=== PATIENT | female | born 1990 | race Asian ===

== ENCOUNTER 2019-02-03 09:35 | Observation (INO) | payer MEDICAID ==
[~2019-02-03] VITALS: Ht 175.3 cm; Wt 68.0 kg
== END 2019-02-03 11:40 | disposition home or self-care (01) ==
LOC: SPU 09:35
PROVIDERS: ADMIT Obstetrics & Gynecology; ATTEND Obstetrics & Gynecology
DX: O62.9 Abnormality of forces of labor, unspecified (principal); Z3A.36 36 weeks gestation of pregnancy
CPT/HCPCS: 76815; G0378; 81002-TC

== ENCOUNTER 2019-02-04 00:16 | Inpatient (IN) | payer MEDICAID ==
[~2019-02-04] VITALS: Ht 175.3 cm; Wt 68.0 kg
[2019-02-04] MEDS ORDERED: OXYTOCIN/0.9 % SODIUM CHLORIDE 1,000 ML IV SCH ×2 (00:46→08:03)
[2019-02-04] MEDS ORDERED: LR 1,000 ML IV ONE (00:46)
[2019-02-04] MEDS ORDERED: LR 500 ML IV ONE ×2 (00:46→02:18)
[2019-02-04] MEDS ORDERED: LR 1,000 ML IV SCH (00:46)
[2019-02-04] MEDS ORDERED: NALBUPHINE HCL 10 MG/ML AMP IM PRN (01:00)
[2019-02-04] MEDS ORDERED: NALBUPHINE HCL 10 MG/ML AMP IVP PRN (01:00)
[2019-02-04] MEDS ORDERED: AMPICILLIN SODIUM 1 GM in NS 50 ML IV SCH (01:00)
[2019-02-04] MEDS ORDERED: AMPICILLIN SODIUM 2 GM in NS 100 ML IV ONE (01:00)
[2019-02-04] MEDS ORDERED: TERBUTALINE SULFATE 1 MG/ML VIAL SUBCUT ONE (01:00)
[2019-02-04 01:27] LABS: BASOPHILS % (AUTO) 0.3 % (0.0-2.0); EOSINOPHILS % (AUTO) 0.5 % (0.0-4.0); HEMATOCRIT 36.8 % (36-48); HEMOGLOBIN 12.9 g/dL (12.0-16.0); LYMPHOCYTES # (AUTO) 2.3 K/uL (1.0-5.5); LYMPHOCYTES % (AUTO) 24.8 % (20.5-51.5); MEAN CORPUSCULAR HEMOGLOBIN 34 pg (27-31); MEAN CORPUSCULAR HGB CONC 35 % (32-36); MEAN CORPUSCULAR VOLUME 96 fL (79.0-98.0); MONOCYTES # (AUTO) 0.7 K/uL (0.0-1.0); MONOCYTES % (AUTO) 7.7 % (1.7-9.3); NEUTROPHILS # (AUTO) 6.2 K/uL (1.8-7.7); NEUTROPHILS % (AUTO) 66.7 % (40.0-70.0); PLATELET COUNT (AUTO) 143 K/uL (130-430); RED BLOOD CELL COUNT(AUTO) 3.85 MIL/uL (4.2-6.2); RED CELL DISTRIBUTION WIDTH 12.8 % (9.0-15.0); WHITE BLOOD COUNT (AUTO) 9.3 K/uL (4.8-10.8)
[2019-02-04] MEDS ORDERED: fentaNYL CITRATE/PF 100 MCG/2 ML AMP ONE ×2 (01:53→02:58)
[2019-02-04] MEDS ORDERED: ROPIVACAINE HCL/PF 0.2% 200 ML ONE (01:53)
[2019-02-04] MEDS ORDERED: AMPICILLIN SODIUM 2 GM VIAL ONE (02:05)
[2019-02-04] MEDS ORDERED: FENT2mCg/mL-ROPIVA0.2%/NS EPID 200 ML EP SCH (02:30)
[2019-02-04 03:41] VITALS: BP_SYST 128
[2019-02-04] MEDS ORDERED: AMPICILLIN SODIUM 1 GM VIAL ONE (05:27)
[2019-02-04] MEDS ORDERED: OXYTOCIN/0.9 % SODIUM CHLORIDE 1,000 ML IV ONE (08:03)
[2019-02-04] MEDS ORDERED: WITCH HAZEL LEAF 1 MED.PAD MED.PAD TP PRN (08:15)
[2019-02-04] MEDS ORDERED: ANUSOL 1 EA SUPP.RECT (PREPARATION H) RC PRN (08:15)
[2019-02-04] MEDS ORDERED: DIPH-TET-PERTUS Vaccine 0.5 ML VIAL (ADACEL) I.M. PRN (08:15)
[2019-02-04] MEDS ORDERED: SENNOSIDES/DOCUSATE SODIUM 1 TAB TABLET(SENOKOT-S) PO PRN (08:15)
[2019-02-04] MEDS ORDERED: OXYCODONE/ACETAMINOPHEN 5-325 TABLET PO PRN ×2 (08:15)
[2019-02-04] MEDS ORDERED: METHYLERGONOVINE MALEATE 0.2 MG TABLET PO PRN (08:15)
[2019-02-04] MEDS ORDERED: RHO(D) IMMUNE GLOBULIN/MALTOSE 1500 UNITS/1.3 ML (WINHRO) IM PRN (08:15)
[2019-02-04] MEDS ORDERED: LANOLIN 7 GM OINT. TP PRN (08:15)
[2019-02-04] MEDS ORDERED: MEASLES,MUMPS&RUBELLA VACC/PF 12500 UNIT/0.5 ML VIAL SUBQ PRN (08:15)
[2019-02-04] MEDS ORDERED: DERMOPLAST SPRAY TP PRN (08:15)
[2019-02-04] MEDS ORDERED: HYDROCORTISONE 0.5%, 28.35 GM TOPICAL CREAM TP PRN (08:15)
[2019-02-04] MEDS: IBUPROFEN 600 MG TABLET PO SCH ×2 (12:32→17:49)
[2019-02-04] MEDS ORDERED: TEMAZEPAM 15 MG CAPSULE PO PRN (21:00)
[2019-02-05] MEDS: IBUPROFEN 600 MG TABLET PO SCH ×4 (00:29→18:00)
[2019-02-05] MEDS: DOCUSATE SODIUM 100 MG CAPSULE PO PRN ×2 (00:29→12:22)
[2019-02-05 06:33] LABS: HEMATOCRIT 29.8 % (36-48); HEMOGLOBIN 10.3 g/dL (12.0-16.0)
== END 2019-02-05 18:30 | disposition home or self-care (01) | DRG 560 ==
LOC: SPU 00:16
PROVIDERS: ADMIT Obstetrics & Gynecology; ATTEND Obstetrics & Gynecology
PROC: 10E0XZZ Delivery of Products of Conception, External Approach (ICD-10-PCS; principal; 2019-02-04)
PROC: 0W8NXZZ Division of Female Perineum, External Approach (ICD-10-PCS; 2019-02-04)
PROC: 3E0R3BZ Introduction of Anesthetic Agent into Spinal Canal, Percutaneous Approach (ICD-10-PCS; 2019-02-04)
PROC: 00HU33Z Insertion of Infusion Device into Spinal Canal, Percutaneous Approach (ICD-10-PCS; 2019-02-04)
DX: O69.81X0 Labor and delivery complicated by cord around neck, without compression, not applicable or unspecified (principal); O77.0 Labor and delivery complicated by meconium in amniotic fluid; Z3A.38 38 weeks gestation of pregnancy; Z37.0 Single live birth
CPT/HCPCS: 36415; 81002-TC; 85018-TC; 85025; 86592; 86886; 86900; 86901; 94760; J0290; J2590; J3010; J7120

== ENCOUNTER 2020-10-03 22:58 | Inpatient (IN) | payer OTHER, SELFPAY ==
[~2020-10-03] VITALS: Ht 175.3 cm; Wt 72.6 kg
[2020-10-04] MEDS ORDERED: NALBUPHINE HCL 10 MG/ML AMP IVP PRN (02:00)
[2020-10-04] MEDS ORDERED: TERBUTALINE SULFATE 1 MG/ML VIAL SUBCUT ONE (02:00)
[2020-10-04] MEDS ORDERED: LR 1,000 ML IV SCH (02:00)
[2020-10-04] MEDS ORDERED: OXYTOCIN/0.9 % SODIUM CHLORIDE 1,000 ML IV SCH (02:00)
[2020-10-04 02:02] VITALS: BP_SYST 127
[2020-10-04 02:33] LABS: BASOPHILS % (AUTO) 0.3 % (0.0-2.0); EOSINOPHILS # (AUTO) 0.1 K/uL (0.0-0.4); EOSINOPHILS % (AUTO) 0.9 % (0.0-4.0); HEMOGLOBIN 12.3 g/dL (12.0-16.0); LYMPHOCYTES # (AUTO) 2.1 K/uL (1.0-5.5); MEAN CORPUSCULAR HEMOGLOBIN 33 pg (27-31); MEAN CORPUSCULAR HGB CONC 34 % (32-36); MEAN CORPUSCULAR VOLUME 96 fL (79.0-98.0); MONOCYTES # (AUTO) 0.6 K/uL (0.0-1.0); MONOCYTES % (AUTO) 7.7 % (1.7-9.3); NEUTROPHILS # (AUTO) 4.5 K/uL (1.8-7.7); NEUTROPHILS % (AUTO) 62.1 % (40.0-70.0); PLATELET COUNT (AUTO) 165 K/uL (130-430); RED BLOOD CELL COUNT(AUTO) 3.74 MIL/uL (4.2-6.2); RED CELL DISTRIBUTION WIDTH 12.4 % (9.0-15.0); WHITE BLOOD COUNT (AUTO) 7.3 K/uL (4.8-10.8)
[2020-10-04] MEDS ORDERED: fentaNYL CITRATE/PF 100 MCG/2 ML AMP ONE (06:15)
[2020-10-04] MEDS ORDERED: FENT2mCg/mL-ROPIVA0.2%/NS EPID 200 ML EP SCH (06:15)
[2020-10-04] MEDS ORDERED: ROPIVACAINE HCL/PF 0.2% 200 ML ONE (06:16)
[2020-10-04] MEDS ORDERED: OXYCODONE/ACETAMINOPHEN 5-325 TABLET PO PRN (08:30)
[2020-10-04] MEDS ORDERED: HYDROcodone/ACETAMIN 5-325 MG TAB (NORCO/ VICODIN) PO PRN (08:30)
[2020-10-04] MEDS: IBUPROFEN 600 MG TABLET PO SCH ×2 (12:09→17:46)
[2020-10-04] MEDS ORDERED: DERMOPLAST SPRAY TP PRN (13:30)
[2020-10-04] MEDS ORDERED: WITCH HAZEL LEAF 1 MED.PAD MED.PAD TP PRN (13:30)
[2020-10-04] MEDS ORDERED: DERMOPLAST SPRAY TP ONE (17:08)
[2020-10-04] MEDS: OXYCODONE/ACETAMINOPHEN 5-325 TABLET PO PRN (22:28)
[2020-10-05] MEDS: IBUPROFEN 600 MG TABLET PO SCH ×3 (06:15→11:29)
[2020-10-05] MEDS: OXYCODONE/ACETAMINOPHEN 5-325 TABLET PO PRN (06:16)
[2020-10-05 06:49] LABS: HEMATOCRIT 33.8 % (36-48); HEMOGLOBIN 11.3 g/dL (12.0-16.0)
[2020-10-06 18:06] LABS: FTA-Ab (T PALLIDUM) Non Reactive (Non Reactive)
== END 2020-10-05 15:15 | disposition home or self-care (01) | DRG 560 ==
LOC: SPU 22:58 → OBSVTOIN 10-04 00:11 → SPU 10-04 00:35
PROVIDERS: ADMIT Obstetrics & Gynecology; ATTEND Obstetrics & Gynecology
PROC: 10E0XZZ Delivery of Products of Conception, External Approach (ICD-10-PCS; principal; 2020-10-04)
PROC: 0W8NXZZ Division of Female Perineum, External Approach (ICD-10-PCS; 2020-10-04)
PROC: 3E0R3BZ Introduction of Anesthetic Agent into Spinal Canal, Percutaneous Approach (ICD-10-PCS; 2020-10-04)
PROC: 00HU33Z Insertion of Infusion Device into Spinal Canal, Percutaneous Approach (ICD-10-PCS; 2020-10-04)
DX: O69.81X0 Labor and delivery complicated by cord around neck, without compression, not applicable or unspecified (principal); Z20.822 Contact with and (suspected) exposure to COVID-19; Z37.0 Single live birth; Z3A.39 39 weeks gestation of pregnancy
CPT/HCPCS: 36415; 81002; 85018; 85025; 86592; 86780; 86886; 86900; 86901; 94760; G0378; J2300; J2590; J3010